=== PATIENT | female | born 1960 | race Caucasian/White ===

== ENCOUNTER → 2022-12-28 | Outpatient (CLI) | payer BC | LOC: RAD 10:38 | DX: M25.562 Pain in left knee (principal); Z96.652 Presence of left artificial knee joint ==

== ENCOUNTER 2022-12-29 07:47 | Outpatient (RCR) | payer BC | END 2023-01-27 | disposition home or self-care (01) | LOC: PT | DX: M25.562 Pain in left knee (principal); Z96.652 Presence of left artificial knee joint ==

== ENCOUNTER 2023-01-28 08:00 | Outpatient (RCR) | payer BC | END 2023-01-31 08:00 | LOC: PT 08:00 | DX: M25.562 Pain in left knee (principal); Z96.652 Presence of left artificial knee joint ==

== ENCOUNTER 2023-02-02 09:56 | Outpatient (RCR) | payer BC | END 2023-02-27 | disposition home or self-care (01) | LOC: PT | DX: Z96.651 Presence of right artificial knee joint (principal) ==

== ENCOUNTER 2023-09-14 02:47 | Emergency (ER) | payer OTHER ==
[2023-09-14 03:46] LABS: BASO # 0.01 K/mm3 (0.02-0.10); EOS # 0.13 K/mm3 (0.04-0.40); EOS % 1.8 % (1.0-5.0); HEMATOCRIT 37.2 % (37.0-47.0); HEMOGLOBIN 11.8 g/dL (12.5-16.0); LYMPH# 1.18 K/mm3 (1.50-4.00); MEAN CELL VOLUME 83 fl (78-100); MEAN CORPUSCULAR HEMOGLOBIN 26 pg (27-31); MEAN CORPUSCULAR HGB CONC 32 g/dL (33-37); MEAN PLATELET VOLUME 8.5 fl (7.4-10.4); MONO # 0.62 K/mm3 (0.20-0.80); NEU # 5.22 K/mm3 (1.40-6.50); PLATELET COUNT 252 K/mm3 (130-400); RED BLOOD COUNT 4.51 M/mm3 (4.10-5.30); RED CELL DISTRIBUTION WIDTH 15.4 % (11.5-14.5); WHITE BLOOD COUNT 7.2 K/mm3 (4.8-10.8)
[2023-09-14 03:54] LABS: SODIUM 141 mmol/L (136-145)
[2023-09-14 03:55] LABS: CALCIUM 9.7 mg/dL (8.3-10.5)
[2023-09-14 03:56] LABS: GLUCOSE 129 mg/dL (65-105); TOTAL PROTEIN 6.3 g/dL (6.2-8.1)
[2023-09-14 03:57] LABS: CARBON DIOXIDE 24 mmol/L (23-31)
[2023-09-14 03:58] LABS: TOTAL BILIRUBIN 0.3 mg/dL (0.2-1.2)
[2023-09-14 03:59] LABS: ALCOHOL IN-HOUSE < 10 mg/dL (<10)
[2023-09-14 04:01] LABS: AST-SGOT 24 U/L (5-34)
[2023-09-14 04:02] LABS: ALT/SGPT 12 U/L (0-55); MAGNESIUM 2.19 mg/dL (1.60-2.60)
[2023-09-14 04:11] LABS: TROPONIN-I < 0.030 ng/mL (0.00-0.033)
[2023-09-14 04:23] LABS: URINE APPEARANCE SLIGHTLY CLOUDY (CLEAR); URINE COLOR YELLOW (YELLOW)
[2023-09-14 04:24] LABS: URINE BILIRUBIN NEGATIVE (NEGATIVE); URINE BLOOD NEGATIVE (NEGATIVE); URINE GLUCOSE NEGATIVE (NEGATIVE); URINE KETONE NEGATIVE (NEGATIVE); URINE LEUKOCYTE ESTERASE TRACE (NEGATIVE); URINE NITRATE NEGATIVE (NEGATIVE); URINE PROTEIN(semi-quant) NEGATIVE (NEGATIVE)
[2023-09-14] MEDS ORDERED: Ondansetron 4 MG/2 ML VIAL IV ONE (06:15)
[2023-09-14 06:56] VITALS: BP 137/92
== END 2023-09-14 06:56 | disposition short-term general hospital (02) ==
LOC: ED 02:47
PROVIDERS: Physician Assistant
DX: S02.40CA Maxillary fracture, right side, initial encounter for closed fracture (principal); S02.31XA Fracture of orbital floor, right side, initial encounter for closed fracture; S02.841A Fracture of lateral orbital wall, right side, initial encounter for closed fracture; S01.112A Laceration without foreign body of left eyelid and periocular area, initial encounter; S01.511A Laceration without foreign body of lip, initial encounter; R41.82 Altered mental status, unspecified; D64.9 Anemia, unspecified; Z23 Encounter for immunization; X58.XXXA Exposure to other specified factors, initial encounter
CPT/HCPCS: 90715; J2405